=== PATIENT | female | born 1995 | race Caucasian/White ===

== ENCOUNTER 2016-07-16 17:19 | Emergency (ER) | payer MEDICAID ==
[~2016-07-16] VITALS: Ht 165.1 cm; Wt 57.3 kg
[~2016-07-16 17:19] MED LIST: NONE PER PT
[2016-07-16 18:01] VITALS: BP 109/70
[2016-07-16 18:15] LABS: BLOOD UREA NITROGEN 11 mg/dL (7-18)
[2016-07-16 18:17] LABS: ASPARTATE AMINO TRANSFERASE 14 U/L (15-37)
== END 2016-07-16 19:15 | disposition left against medical advice (07) ==
LOC: ED 18:43
DX: O20.9 Hemorrhage in early pregnancy, unspecified (principal); R10.2 Pelvic and perineal pain; Z3A.01 Less than 8 weeks gestation of pregnancy
CPT/HCPCS: 36415; 76801; 80053; 81003; 85025

== ENCOUNTER 2016-08-05 16:38 | Emergency (ER) | payer MEDICAID ==
[~2016-08-05] VITALS: Ht 165.1 cm; Wt 57.9 kg
[2016-08-05 17:52] LABS: BLOOD UREA NITROGEN 7 mg/dL (7-18)
[2016-08-05 19:22] VITALS: BP 110/65
== END 2016-08-05 19:25 | disposition home or self-care (01) ==
LOC: ED 17:08
DX: O20.0 Threatened abortion (principal); Z3A.09 9 weeks gestation of pregnancy; F15.10 Other stimulant abuse, uncomplicated
CPT/HCPCS: 36415; 76801; 80048; 81003; 82040; 84702; 85025; 86901; 99285

== ENCOUNTER 2016-09-15 22:02 | Emergency (ER) | payer MEDICAID ==
[~2016-09-15] VITALS: Ht 165.1 cm; Wt 57.9 kg
[2016-09-15] MEDS ORDERED: KETOROLAC 30 MG/1 ML IM ONE (23:00)
[2016-09-15] MEDS ORDERED: KETOROLAC 30 MG/1 ML ONE (23:09)
[2016-09-15 23:30] LABS: ASPARTATE AMINO TRANSFERASE 16 U/L (15-37); BLOOD UREA NITROGEN 15 mg/dL (7-18)
[2016-09-16 03:30] VITALS: BP 109/60
[2016-09-16] MEDS ORDERED: SODIUM CHLORIDE 0.9% 1,000ML IVBOLUS ONE (03:30)
== END 2016-09-16 03:32 | disposition home or self-care (01) ==
LOC: ED 23:14
DX: A59.01 Trichomonal vulvovaginitis (principal); N88.8 Other specified noninflammatory disorders of cervix uteri; Z87.891 Personal history of nicotine dependence
CPT/HCPCS: 36415; 76830; 80053; 81001; 84702; 85025; 87086; 87210; 87491; 87591; 87808; 96372; 99285; J1885

== ENCOUNTER 2016-09-20 23:50 | Emergency (ER) | payer MEDICAID ==
[~2016-09-20] VITALS: Ht 165.1 cm; Wt 68.5 kg
[2016-09-21] MEDS ORDERED: METR500T4 PO (00:37)
[2016-09-21] MEDS ORDERED: ONDANSETRON ODT 4 MG ONE (01:22)
[2016-09-21] MEDS ORDERED: HYDROcodone/APAP 5/325 TABLET ONE (01:22)
[2016-09-21] MEDS ORDERED: ONDANSETRON ODT 4 MG PO ONE (01:30)
[2016-09-21] MEDS ORDERED: HYDROcodone/APAP 5/325 TABLET PO ONE (01:30)
[2016-09-21 01:35] LABS: BLOOD UREA NITROGEN 11 mg/dL (7-18)
[2016-09-21 03:09] VITALS: BP 96/56
== END 2016-09-21 03:11 | disposition home or self-care (01) ==
LOC: ED 23:59
DX: R10.2 Pelvic and perineal pain (principal); G89.29 Other chronic pain; N93.8 Other specified abnormal uterine and vaginal bleeding; N92.4 Excessive bleeding in the premenopausal period
CPT/HCPCS: 36415; 76830; 80048; 81003; 82040; 84703; 85025; 99285; Q0162

== ENCOUNTER 2016-11-04 13:00 | Emergency (ER) | payer MEDICAID, OTHER ==
[~2016-11-04] VITALS: Ht 165.1 cm; Wt 51.3 kg
[~2016-11-04 13:00] MED LIST changes: +METR500T4 PO
[2016-11-04 13:06] VITALS: BP 105/75
== END 2016-11-04 15:45 | disposition left against medical advice (07) ==
LOC: ED 15:41
DX: N93.9 Abnormal uterine and vaginal bleeding, unspecified (principal); R10.9 Unspecified abdominal pain; Z53.21 Procedure and treatment not carried out due to patient leaving prior to being seen by health care provider

== ENCOUNTER 2016-11-06 02:56 | Emergency (ER) | payer OTHER ==
[~2016-11-06] VITALS: Ht 165.1 cm; Wt 51.3 kg
[2016-11-06] MEDS ORDERED: AZITHROMYCIN 500 MG TABLET PO ONE (03:30)
[2016-11-06] MEDS ORDERED: CEFTRIAXONE 250 MG IM ONE (03:30)
[2016-11-06] MEDS ORDERED: LIDOCAINE 1%, 20ML ONE (03:44)
[2016-11-06] MEDS ORDERED: CEFTRIAXONE 1,000 MG ONE (03:44)
[2016-11-06] MEDS ORDERED: AZITHROMYCIN 500 MG TABLET ONE (03:44)
[2016-11-06 03:46] LABS: HCG UR OBC PASS
[2016-11-06] MEDS ORDERED: CEFTRIAXONE 250 MG ONE (03:51)
[2016-11-06 04:13] VITALS: BP 111/70
== END 2016-11-06 05:14 | disposition home or self-care (01) ==
LOC: ED 03:12
DX: N83.202 Unspecified ovarian cyst, left side (principal); N76.0 Acute vaginitis; Z87.891 Personal history of nicotine dependence
CPT/HCPCS: 76830; 81001; 81025; 87086; 87210; 87491; 87591; 87808; 96372; 99285; J0696

== ENCOUNTER 2018-01-03 10:13 | Emergency (ER) | payer MEDICAID ==
[~2018-01-03] VITALS: Ht 165.1 cm; Wt 66.6 kg
[~2018-01-03 10:13] MED LIST changes: -METR500T4 PO; +METR500T8 PO
[2018-01-03] MEDS ORDERED: PHENAZOPYRIDINE 200 MG TABLET PO ONE (11:00)
[2018-01-03] MEDS ORDERED: PHENAZOPYRIDINE 200 MG TABLET ONE (11:10)
[2018-01-03 12:16] LABS: MICROSCOPIC INDICATED
[2018-01-03 12:17] LABS: CULTURE INDICATED? YES
[2018-01-03] MEDS ORDERED: CEFTRIAXONE 1,000 MG IM ONE (13:00)
[2018-01-03] MEDS ORDERED: CEFTRIAXONE 1,000 MG ONE (13:11)
[2018-01-03] MEDS ORDERED: LIDOCAINE-MPF 2% ,5ML ONE (13:11)
[2018-01-03 13:48] VITALS: BP 102/61
== END 2018-01-03 13:50 | disposition home or self-care (01) ==
LOC: ED 10:33
DX: O23.11 Infections of bladder in pregnancy, first trimester (principal); Z3A.09 9 weeks gestation of pregnancy; R31.9 Hematuria, unspecified
CPT/HCPCS: 81001; 87077; 87086; 96372; 99284; J0696

== ENCOUNTER 2018-01-25 11:23 | Emergency (ER) | payer MEDICAID ==
[~2018-01-25] VITALS: Ht 165.1 cm; Wt 66.7 kg
[2018-01-25 11:38] VITALS: BP 107/73
[2018-01-25 12:11] LABS: BASOPHILS # (AUTO) 0.06 x10^3/uL (0-0.1); BASOPHILS % (AUTO) 1 % (0-1); EOSINOPHILS # (AUTO) 0.09 x10^3/uL (0-0.4); EOSINOPHILS % (AUTO) 1 % (1-7); LYMPHOCYTES # (AUTO) 1.79 x10^3/uL (1-3.4); LYMPHOCYTES % (AUTO) 18 % (22-44); MD NO; MEAN CORPUSCULAR HEMOGLOBIN 30.4 pg (27.0-34.8); MEAN CORPUSCULAR HGB CONC 34.2 g/dL (32.4-35.8); MEAN PLATELET VOLUME 8.4 fL (7.4-10.4); MONOCYTES % (AUTO) 5 % (2-9); NEUTROPHILS % (AUTO) 75 % (42-75); PLATELET COUNT 229 x10^3/uL (130-400); RED BLOOD COUNT 4.63 x10^6/uL (3.82-5.3); RED CELL DISTRIBUTION WIDTH 12.4 % (9.6-15.2)
[2018-01-25 12:24] LABS: ALBUMIN 3.7 g/dL (3.4-5.0); ANION GAP 8 mmol/L (5-15); CALCIUM 8.8 mg/dL (8.5-10.1); CHLORIDE 108 mmol/L (98-107); CREATININE 0.58 mg/dL (0.55-1.02)
[2018-01-25 13:18] LABS: MICROSCOPIC NOT IND
[2018-01-25 13:19] LABS: CULTURE INDICATED? NO
== END 2018-01-25 13:34 | disposition home or self-care (01) ==
LOC: ED 13:31
DX: O26.891 Other specified pregnancy related conditions, first trimester (principal); K08.89 Other specified disorders of teeth and supporting structures; R10.9 Unspecified abdominal pain; Z3A.12 12 weeks gestation of pregnancy
CPT/HCPCS: 36415; 76801; 80048; 81003; 82040; 84702; 85025; 99285

== ENCOUNTER 2018-03-13 18:01 | Emergency (ER) | payer MEDICAID ==
[~2018-03-13] VITALS: Ht 154.9 cm; Wt 66.0 kg
[~2018-03-13 18:01] MED LIST changes: +METR-142 PO; -METR500T8 PO
[2018-03-13 18:03] VITALS: BP 111/55
[2018-03-13 18:42] LABS: BASOPHILS # (AUTO) 0.12 x10^3/uL (0-0.1); BASOPHILS % (AUTO) 1 % (0-1); EOSINOPHILS # (AUTO) 0.15 x10^3/uL (0-0.4); EOSINOPHILS % (AUTO) 1 % (1-7); LYMPHOCYTES % (AUTO) 20 % (22-44); MD NO; MEAN CORPUSCULAR HEMOGLOBIN 30.1 pg (27.0-34.8); MEAN CORPUSCULAR HGB CONC 34.2 g/dL (32.4-35.8); MEAN PLATELET VOLUME 8.4 fL (7.4-10.4); MONOCYTES # (AUTO) 0.62 x10^3/uL (0.2-0.8); MONOCYTES % (AUTO) 5 % (2-9); NEUTROPHILS # (AUTO) 8.62 x10^3/uL (1.8-6.8); NEUTROPHILS % (AUTO) 73 % (42-75); PLATELET COUNT 282 x10^3/uL (130-400); RED BLOOD COUNT 4.44 x10^6/uL (3.82-5.3); RED CELL DISTRIBUTION WIDTH 12.4 % (9.6-15.2)
[2018-03-13 18:52] LABS: ALANINE AMINOTRANSFERASE 16 U/L (12-78); ALBUMIN 3.4 g/dL (3.4-5.0); ANION GAP 9 mmol/L (5-15); CALCIUM 8.8 mg/dL (8.5-10.1); CHLORIDE 107 mmol/L (98-107); CREATININE 0.59 mg/dL (0.55-1.02)
[2018-03-13 18:54] LABS: ALKALINE PHOSPHATASE 50 U/L (45-117); BILIRUBIN,TOTAL 0.5 mg/dL (0.2-1.0); TOTAL PROTEIN 7.1 g/dL (6.4-8.2)
[2018-03-13 19:21] LABS: MICROSCOPIC INDICATED
[2018-03-13 20:18] LABS: CULTURE INDICATED? NO
== END 2018-03-13 19:40 | disposition home or self-care (01) ==
LOC: ED 19:01
DX: O26.892 Other specified pregnancy related conditions, second trimester (principal); Z3A.19 19 weeks gestation of pregnancy; F15.10 Other stimulant abuse, uncomplicated; R10.32 Left lower quadrant pain
CPT/HCPCS: 36415; 76815; 80053; 81001; 85025; 99284